=== PATIENT | male | born 1960 | race Hispanic/Latino ===

== ENCOUNTER 2021-07-29 13:48 | Inpatient (IN) | payer MEDICARE, BC ==
[~2021-07-29] VITALS: Ht 167.6 cm; Wt 78.2 kg
[2021-07-29] MEDS ORDERED: MIDODRINE 2.5 MG TAB PO ONE (14:15)
[2021-07-29] MEDS ORDERED: PIPERACILLIN/TAZOBACTAM 2.25 GM in SODIUM CHLORIDE 0.9% 50ML 50 ML IV ONE (14:15)
[2021-07-29] MEDS ORDERED: CEFEPIME 1 GM in SODIUM CHLORIDE 0.9% 50ML 50 ML IV ONE (14:15)
[2021-07-29] MEDS ORDERED: SODIUM CHLORIDE 0.9% 500ML 500 ML IV ONE (14:15)
[2021-07-29] MEDS ORDERED: Vancomycin IV 1 GM in SODIUM CHLORIDE 0.9% 250ML 250 ML IV ONE (14:15)
[2021-07-29 14:28] LABS: BASOPHILS # (AUTO) 0.1 (0.0-0.1); BASOPHILS % 0.3 % (0.0-1.0); HEMATOCRIT 43.3 % (38.2-49.6); HEMOGLOBIN 13.3 g/dL (14.0-18.0); LYMPHOCYTES % 7.2 % (18.0-39.1); MEAN CORPUSCULAR HEMOGLOBIN 28.4 pg (28-32); MEAN CORPUSCULAR HGB CONC 30.7 g/dL (31-35); MEAN CORPUSCULAR VOLUME 92.5 fL (81-99); MONOCYTES # (AUTO) 1.9 (0.2-0.8); MONOCYTES % 6.8 % (4.4-11.3); NEUTROPHILS # (AUTO) 23.6 (2.1-6.9); NEUTROPHILS % 84.9 % (38.7-80.0); PLATELET COUNT 131 x10e3/uL (140-360); RED BLOOD COUNT 4.68 x10e6/uL (4.3-5.7); RED CELL DISTRIBUTION WIDTH 13.2 % (11.7-14.4)
[2021-07-29 14:33] LABS: INR 1.22; PROTHROMBIN TIME 16.4 seconds (11.9-14.5)
[2021-07-29 14:34] LABS: PARTIAL THROMBOPLASTIN TIME 36.5 seconds (23.8-35.5)
[2021-07-29 14:44] LABS: ALBUMIN 3.3 g/dL (3.5-5.0); ALBUMIN/GLOBULIN RATIO 0.7 (0.8-2.0); ANION GAP 22.7 mmol/L (8-16); CALCIUM 9.8 mg/dL (8.4-10.2); CREATININE, SERUM 8.64 mg/dL (0.72-1.25); POTASSIUM 4.7 mmol/L (3.5-5.1)
[2021-07-29] MEDS ORDERED: SODIUM CHLORIDE 0.9% 50ML 50 ML ONE (14:47)
[2021-07-29] MEDS ORDERED: IOPAMIDOL 370 MG/ML 200 ML INFUS..BTL INJ ONE (14:47)
[2021-07-29 14:50] LABS: CREATINE KINASE MB 1.8 ng/mL (0-5.0)
[2021-07-29] MEDS ORDERED: ONDANSETRON HCL INJ 2MG/ML 2ML 2 MG/ML VIAL IV PRN (16:30)
[2021-07-29] MEDS ORDERED: DEXTROSE 50% SYRINGE 50 ML IV PRN (16:30)
[2021-07-29] MEDS: MIDODRINE 2.5 MG TAB PO SCH (17:17)
[2021-07-29] MEDS: INSULIN LISPRO 100 UNIT/1 ML 3ML VIAL SQ SCH ×2 (17:28→21:00)
[2021-07-29] MEDS: CLINDAMYCIN 600MG / 50ML 50 ML IV SCH (18:07)
[2021-07-29 20:17] VITALS: BP 95/48
[2021-07-29 21:00] VITALS: BP 84/48
[2021-07-29 21:32] VITALS: BP 101/42
[2021-07-29 21:37] LABS: BAND NEUTROPHILS % (MANUAL) 17 %; LYMPHOCYTES % (MANUAL) 11 % (19-48); MONOCYTES % (MANUAL) 5 % (3.4-9.0); NEUTROPHILS % (MANUAL) 67 % (40-74); PLATELET ESTIMATE ADEQUATE; PLATELET MORPHOLOGY COMMENT NORMAL; RBC MORPHOLOGY COMMENT NORMAL
[2021-07-29] MEDS ORDERED: MIDODRINE 2.5 MG TAB PO STA (21:48)
[2021-07-29 22:00] VITALS: BP 79/40
[2021-07-29] MEDS ORDERED: ALBUMIN 25% 25GM 100ML 0.25 GM/ML BTL IV ONE (22:00)
[2021-07-29 22:07] VITALS: BP 79/40
[2021-07-29 23:00] VITALS: BP 93/47
[2021-07-30] VITALS (26 sets, daily range): BP systolic 82–128; BP diastolic 39–61
[2021-07-30] MEDS: CLINDAMYCIN 600MG / 50ML 50 ML IV SCH ×2 (00:38→06:05)
[2021-07-30] MEDS: PIPERACILLIN/TAZOBACTAM 2.25 GM in SODIUM CHLORIDE 0.9% 50ML 50 ML IV SCH ×2 (02:00→10:07)
[2021-07-30] MEDS ORDERED: SODIUM CHLORIDE 0.9% 1000ML 1,000 ML IV SCH (03:45)
[2021-07-30 05:22] LABS: BASOPHILS # (AUTO) 0.1 (0.0-0.1); BASOPHILS % 0.4 % (0.0-1.0); HEMATOCRIT 35.8 % (38.2-49.6); HEMOGLOBIN 11.3 g/dL (14.0-18.0); LYMPHOCYTES # (AUTO) 1.6 (1.0-3.2); LYMPHOCYTES % 5.9 % (18.0-39.1); MEAN CORPUSCULAR HEMOGLOBIN 28.6 pg (28-32); MEAN CORPUSCULAR HGB CONC 31.6 g/dL (31-35); MEAN CORPUSCULAR VOLUME 90.6 fL (81-99); MONOCYTES # (AUTO) 2.3 (0.2-0.8); MONOCYTES % 8.7 % (4.4-11.3); NEUTROPHILS # (AUTO) 22.2 (2.1-6.9); NEUTROPHILS % 83.8 % (38.7-80.0); PLATELET COUNT 122 x10e3/uL (140-360); RED BLOOD COUNT 3.95 x10e6/uL (4.3-5.7); RED CELL DISTRIBUTION WIDTH 13.3 % (11.7-14.4)
[2021-07-30] MEDS: VASOPRESSIN 60 UNIT in DEXTROSE 5% 50ML 57 ML IV SCH ×2 (05:30→21:10)
[2021-07-30 05:54] LABS: ALBUMIN 2.6 g/dL (3.5-5.0); ALBUMIN/GLOBULIN RATIO 0.8 (0.8-2.0); ANION GAP 25.6 mmol/L (8-16); CALCIUM 8.4 mg/dL (8.4-10.2); CREATININE, SERUM 9.04 mg/dL (0.72-1.25); POTASSIUM 4.6 mmol/L (3.5-5.1)
[2021-07-30 06:03] LABS: CREATINE KINASE MB 1.1 ng/mL (0-5.0)
[2021-07-30] MEDS: INSULIN LISPRO 100 UNIT/1 ML 3ML VIAL SQ SCH ×4 (07:30→21:01)
[2021-07-30] MEDS: Morphine 2mg Syringe 2 MG/ML SYR IV PRN ×3 (09:10→19:28)
[2021-07-30] MEDS ORDERED: SODIUM BICARBONATE 8.4% INJ 50 ML SYR IV STA (09:18)
[2021-07-30] MEDS ORDERED: SODIUM CHLORIDE 0.9% 1000ML 1,000 ML IV ONE (09:25)
[2021-07-30 09:49] LABS: BAND NEUTROPHILS % (MANUAL) 1 %; LYMPHOCYTES % (MANUAL) 6 % (19-48); MONOCYTES % (MANUAL) 3 % (3.4-9.0); NEUTROPHILS % (MANUAL) 90 % (40-74); PLATELET ESTIMATE SLIGHTLY DECREASED; PLATELET MORPHOLOGY COMMENT NORMAL; RBC MORPHOLOGY COMMENT NORMAL
[2021-07-30] MEDS ORDERED: SODIUM CHLORIDE 0.9% 1000ML 1,000 ML ONE (10:07)
[2021-07-30] MEDS: MIDODRINE 2.5 MG TAB PO SCH ×3 (10:07→16:46)
[2021-07-30] MEDS ORDERED: ALBUMIN 25% 25GM 100ML 100 ML ONE (10:30)
[2021-07-30] MEDS ORDERED: SODIUM CHLORIDE 0.9% 1000ML 2,000 ML IV PRN (11:15)
[2021-07-30] MEDS ORDERED: ALBUMIN 25% 12.5GM 0.25 GM/ML BTL IV PRN ×2 (11:15)
[2021-07-30] MEDS ORDERED: Vancomycin IV 500 MG in SODIUM CHLORIDE 0.9% 100 ML IV ONE (11:30)
[2021-07-30] MEDS: DIPHENOXYLATE/ATROPINE TAB PO PRN (12:25)
[2021-07-30] MEDS ORDERED: NEURONTIN100 MG PO (13:19)
[2021-07-30] MEDS ORDERED: SODIUM BICARBO650 MG PO (13:19)
[2021-07-30] MEDS ORDERED: VALERIAN ROOT500 MG (13:19)
[2021-07-30] MEDS ORDERED: CLOPIDOGREL75 MG PO (13:19)
[2021-07-30] MEDS ORDERED: LIPITOR20 MG PO (13:19)
[2021-07-30] MEDS ORDERED: RENA-VITE TABL0.8 MG (13:19)
[2021-07-30] MEDS ORDERED: RENAGEL800 MG PO (13:19)
[2021-07-30] MEDS ORDERED: CEFEPIME 1 GM in SODIUM CHLORIDE 0.9% 50ML 50 ML IV SCH (14:00)
[2021-07-30 14:53] LABS: CREATINE KINASE MB 1.5 ng/mL (0-5.0)
[2021-07-30] MEDS: GABAPENTIN 100 MG CAP PO SCH ×2 (15:03→21:10)
[2021-07-30] MEDS ORDERED: Vancomycin IV 750 MG in SODIUM CHLORIDE 0.9% 250ML 150 ML IV SCH (17:00)
[2021-07-30] MEDS ORDERED: PIPERACILLIN/TAZOBACTAM 3.375 GM in SODIUM CHLORIDE 0.9% 50ML 50 ML IV SCH (21:00)
[2021-07-30] MEDS: ATORVASTATIN 40 MG TAB PO SCH (21:10)
[2021-07-31] VITALS (26 sets, daily range): BP systolic 82–114; BP diastolic 45–69
[2021-07-31] MEDS: DIPHENOXYLATE/ATROPINE TAB PO PRN (03:42)
[2021-07-31 05:38] LABS: BASOPHILS # (AUTO) 0.1 (0.0-0.1); BASOPHILS % 0.5 % (0.0-1.0); EOSINOPHILS # (AUTO) 0.1 (0.0-0.4); EOSINOPHILS % 0.2 % (0.0-6.0); HEMATOCRIT 34.3 % (38.2-49.6); HEMOGLOBIN 10.5 g/dL (14.0-18.0); LYMPHOCYTES # (AUTO) 1.8 (1.0-3.2); LYMPHOCYTES % 7.8 % (18.0-39.1); MEAN CORPUSCULAR HEMOGLOBIN 28.3 pg (28-32); MEAN CORPUSCULAR HGB CONC 30.6 g/dL (31-35); MEAN CORPUSCULAR VOLUME 92.5 fL (81-99); MONOCYTES % 12.7 % (4.4-11.3); NEUTROPHILS # (AUTO) 18.4 (2.1-6.9); PLATELET COUNT 138 x10e3/uL (140-360); RED BLOOD COUNT 3.71 x10e6/uL (4.3-5.7); RED CELL DISTRIBUTION WIDTH 13.4 % (11.7-14.4)
[2021-07-31 05:50] LABS: ALBUMIN/GLOBULIN RATIO 0.9 (0.8-2.0); ANION GAP 26.5 mmol/L (8-16); CALCIUM 8.3 mg/dL (8.4-10.2); CREATININE, SERUM 6.27 mg/dL (0.72-1.25); POTASSIUM 3.5 mmol/L (3.5-5.1)
[2021-07-31] MEDS: VASOPRESSIN 60 UNIT in DEXTROSE 5% 50ML 57 ML IV SCH (05:55)
[2021-07-31 06:15] LABS: CHOL/HDL RATIO 4.5 (3.9-4.7); MAGNESIUM 1.9 MG/DL (1.3-2.1); PHOSPHORUS 5.2 MG/DL (2.3-4.7)
[2021-07-31 06:36] LABS: THYROID STIMULATING HORMONE 0.42 uIU/mL (0.350-4.940)
[2021-07-31] MEDS ORDERED: LIDOCAINE HCL 2% LOCAL 20 ML VIAL ONE (07:44)
[2021-07-31] MEDS: Morphine 2mg Syringe 2 MG/ML SYR IV PRN (07:52)
[2021-07-31] MEDS ORDERED: LIDOCAINE HCL 2% LOCAL 20 ML VIAL INJ ONE (08:15)
[2021-07-31] MEDS: MIDODRINE 2.5 MG TAB PO SCH ×3 (08:41→15:38)
[2021-07-31] MEDS: FAMOTIDINE 20 MG/2 ML VIAL IV SCH (08:42)
[2021-07-31] MEDS: GABAPENTIN 100 MG CAP PO SCH ×3 (08:42→21:17)
[2021-07-31] MEDS: CLOPIDOGREL BISULFATE 75 MG TAB PO SCH (08:42)
[2021-07-31] MEDS: INSULIN LISPRO 100 UNIT/1 ML 3ML VIAL SQ SCH ×4 (08:53→21:45)
[2021-07-31] MEDS: PIPERACILLIN/TAZOBACTAM 3.375 GM in SODIUM CHLORIDE 0.9% 50ML 50 ML IV SCH ×2 (09:47→21:18)
[2021-07-31] MEDS: ATORVASTATIN 40 MG TAB PO SCH (21:17)
[2021-08-01] VITALS (24 sets, daily range): BP systolic 77–135; BP diastolic 38–112
[2021-08-01 05:01] LABS: BASOPHILS # (AUTO) 0.1 (0.0-0.1); BASOPHILS % 0.3 % (0.0-1.0); EOSINOPHILS # (AUTO) 0.1 (0.0-0.4); EOSINOPHILS % 0.6 % (0.0-6.0); HEMATOCRIT 34.1 % (38.2-49.6); HEMOGLOBIN 10.6 g/dL (14.0-18.0); LYMPHOCYTES # (AUTO) 2.1 (1.0-3.2); LYMPHOCYTES % 9.2 % (18.0-39.1); MEAN CORPUSCULAR HEMOGLOBIN 28.4 pg (28-32); MEAN CORPUSCULAR HGB CONC 31.1 g/dL (31-35); MEAN CORPUSCULAR VOLUME 91.4 fL (81-99); MONOCYTES # (AUTO) 2.8 (0.2-0.8); MONOCYTES % 12.1 % (4.4-11.3); NEUTROPHILS # (AUTO) 17.7 (2.1-6.9); NEUTROPHILS % 76.8 % (38.7-80.0); PLATELET COUNT 144 x10e3/uL (140-360); RED BLOOD COUNT 3.73 x10e6/uL (4.3-5.7); RED CELL DISTRIBUTION WIDTH 13.4 % (11.7-14.4)
[2021-08-01 05:22] LABS: ALBUMIN 2.7 g/dL (3.5-5.0); ALBUMIN/GLOBULIN RATIO 0.8 (0.8-2.0); ANION GAP 25.5 mmol/L (8-16); CREATININE, SERUM 7.96 mg/dL (0.72-1.25); POTASSIUM 3.5 mmol/L (3.5-5.1)
[2021-08-01] MEDS: FAMOTIDINE 20 MG/2 ML VIAL IV SCH (08:14)
[2021-08-01] MEDS: GABAPENTIN 100 MG CAP PO SCH ×3 (08:14→20:44)
[2021-08-01] MEDS: PIPERACILLIN/TAZOBACTAM 3.375 GM in SODIUM CHLORIDE 0.9% 50ML 50 ML IV SCH (08:14)
[2021-08-01] MEDS: MIDODRINE 2.5 MG TAB PO SCH ×3 (08:14→16:59)
[2021-08-01] MEDS: CLOPIDOGREL BISULFATE 75 MG TAB PO SCH (08:14)
[2021-08-01] MEDS: INSULIN LISPRO 100 UNIT/1 ML 3ML VIAL SQ SCH ×4 (08:17→20:45)
[2021-08-01 08:32] LABS: EOSINOPHILS % (MANUAL) 1 % (0-7); MONOCYTES % (MANUAL) 13 % (3.4-9.0); NEUTROPHILS % (MANUAL) 86 % (40-74); PLATELET ESTIMATE SLIGHTLY DECREASED; PLATELET MORPHOLOGY COMMENT NORMAL
[2021-08-01 08:33] LABS: RBC MORPHOLOGY COMMENT NORMAL
[2021-08-01] MEDS: ATORVASTATIN 40 MG TAB PO SCH (20:44)
[2021-08-02] VITALS (25 sets, daily range): BP systolic 76–122; BP diastolic 41–63
[2021-08-02 04:58] LABS: BASOPHILS # (AUTO) 0.1 (0.0-0.1); BASOPHILS % 0.4 % (0.0-1.0); EOSINOPHILS # (AUTO) 0.2 (0.0-0.4); EOSINOPHILS % 0.9 % (0.0-6.0); HEMATOCRIT 38.8 % (38.2-49.6); HEMOGLOBIN 11.9 g/dL (14.0-18.0); LYMPHOCYTES # (AUTO) 1.6 (1.0-3.2); LYMPHOCYTES % 7.7 % (18.0-39.1); MEAN CORPUSCULAR HEMOGLOBIN 28.5 pg (28-32); MEAN CORPUSCULAR HGB CONC 30.7 g/dL (31-35); MEAN CORPUSCULAR VOLUME 92.8 fL (81-99); MONOCYTES # (AUTO) 2.9 (0.2-0.8); MONOCYTES % 13.6 % (4.4-11.3); NEUTROPHILS % 75.9 % (38.7-80.0); PLATELET COUNT 155 x10e3/uL (140-360); RED BLOOD COUNT 4.18 x10e6/uL (4.3-5.7); RED CELL DISTRIBUTION WIDTH 13.5 % (11.7-14.4)
[2021-08-02] MEDS: VASOPRESSIN 60 UNIT in DEXTROSE 5% 50ML 57 ML IV SCH (05:15)
[2021-08-02 05:25] LABS: ALBUMIN/GLOBULIN RATIO 0.8 (0.8-2.0); ANION GAP 24.4 mmol/L (8-16); CALCIUM 8.6 mg/dL (8.4-10.2); CREATININE, SERUM 4.95 mg/dL (0.72-1.25); POTASSIUM 3.4 mmol/L (3.5-5.1)
[2021-08-02] MEDS: INSULIN LISPRO 100 UNIT/1 ML 3ML VIAL SQ SCH ×4 (07:37→21:28)
[2021-08-02] MEDS: CEFTRIAXONE 2 GM in SODIUM CHLORIDE 0.9% 100 ML IV SCH (09:42)
[2021-08-02] MEDS: GABAPENTIN 100 MG CAP PO SCH (09:42)
[2021-08-02] MEDS: MIDODRINE 2.5 MG TAB PO SCH ×3 (09:42→16:09)
[2021-08-02] MEDS: FAMOTIDINE 20 MG/2 ML VIAL IV SCH (09:42)
[2021-08-02] MEDS: CLOPIDOGREL BISULFATE 75 MG TAB PO SCH (09:42)
[2021-08-02] MEDS: ACETAMINOPHEN 325 MG TAB PO PRN (21:27)
[2021-08-02] MEDS: ATORVASTATIN 40 MG TAB PO SCH (21:27)
[2021-08-03] VITALS (7 sets, daily range): BP systolic 78–102; BP diastolic 48–61
[2021-08-03 05:01] LABS: BASOPHILS # (AUTO) 0.1 (0.0-0.1); BASOPHILS % 0.3 % (0.0-1.0); EOSINOPHILS # (AUTO) 0.4 (0.0-0.4); EOSINOPHILS % 2.2 % (0.0-6.0); HEMATOCRIT 36.8 % (38.2-49.6); HEMOGLOBIN 11.5 g/dL (14.0-18.0); LYMPHOCYTES # (AUTO) 2.8 (1.0-3.2); LYMPHOCYTES % 14.8 % (18.0-39.1); MEAN CORPUSCULAR HGB CONC 31.3 g/dL (31-35); MEAN CORPUSCULAR VOLUME 89.5 fL (81-99); MONOCYTES # (AUTO) 2.2 (0.2-0.8); MONOCYTES % 11.9 % (4.4-11.3); NEUTROPHILS # (AUTO) 12.5 (2.1-6.9); NEUTROPHILS % 67.4 % (38.7-80.0); PLATELET COUNT 205 x10e3/uL (140-360); RED BLOOD COUNT 4.11 x10e6/uL (4.3-5.7); RED CELL DISTRIBUTION WIDTH 13.2 % (11.7-14.4)
[2021-08-03 05:24] LABS: ANION GAP 20.1 mmol/L (8-16); CREATININE, SERUM 6.54 mg/dL (0.72-1.25); MAGNESIUM 1.9 MG/DL (1.3-2.1); PHOSPHORUS 4.5 MG/DL (2.3-4.7); POTASSIUM 3.1 mmol/L (3.5-5.1)
[2021-08-03 06:21] LABS: EOSINOPHILS % (MANUAL) 3 % (0-7); LYMPHOCYTES % (MANUAL) 24 % (19-48); MONOCYTES % (MANUAL) 8 % (3.4-9.0); NEUTROPHILS % (MANUAL) 65 % (40-74); PLATELET ESTIMATE ADEQUATE
[2021-08-03 06:22] LABS: HYPOCHROMASIA SLIGHT; PLATELET MORPHOLOGY COMMENT NORMAL; RBC MORPHOLOGY COMMENT NORMAL
[2021-08-03] MEDS: INSULIN LISPRO 100 UNIT/1 ML 3ML VIAL SQ SCH ×4 (08:00→21:00)
[2021-08-03] MEDS: CEFTRIAXONE 2 GM in SODIUM CHLORIDE 0.9% 100 ML IV SCH (08:57)
[2021-08-03] MEDS: FAMOTIDINE 20 MG/2 ML VIAL IV SCH (08:57)
[2021-08-03] MEDS: MIDODRINE 2.5 MG TAB PO SCH ×3 (08:57→16:53)
[2021-08-03] MEDS: CLOPIDOGREL BISULFATE 75 MG TAB PO SCH (08:58)
[2021-08-03] MEDS: INSULIN GLARGINE 100 UNITS/ML VIAL SQ SCH (09:04)
[2021-08-03] MEDS ORDERED: SODIUM CHLORIDE 0.9% 250ML 250 ML ONE (09:26)
[2021-08-03] MEDS ORDERED: ONDANSETRON HCL 4 MG ORAL DISINTEGRATING TAB PO PRN (10:45)
[2021-08-03] MEDS: ATORVASTATIN 40 MG TAB PO SCH (21:30)
[2021-08-04] VITALS (8 sets, daily range): BP systolic 85–103; BP diastolic 51–68
[2021-08-04 04:57] LABS: BASOPHILS # (AUTO) 0.1 (0.0-0.1); BASOPHILS % 0.6 % (0.0-1.0); EOSINOPHILS # (AUTO) 0.2 (0.0-0.4); EOSINOPHILS % 1.2 % (0.0-6.0); HEMATOCRIT 38.3 % (38.2-49.6); HEMOGLOBIN 11.9 g/dL (14.0-18.0); LYMPHOCYTES # (AUTO) 2.2 (1.0-3.2); LYMPHOCYTES % 12.8 % (18.0-39.1); MEAN CORPUSCULAR HEMOGLOBIN 28.1 pg (28-32); MEAN CORPUSCULAR HGB CONC 31.1 g/dL (31-35); MEAN CORPUSCULAR VOLUME 90.3 fL (81-99); MONOCYTES # (AUTO) 2.8 (0.2-0.8); MONOCYTES % 16.3 % (4.4-11.3); NEUTROPHILS # (AUTO) 11.2 (2.1-6.9); NEUTROPHILS % 66.1 % (38.7-80.0); PLATELET COUNT 216 x10e3/uL (140-360); RED BLOOD COUNT 4.24 x10e6/uL (4.3-5.7); RED CELL DISTRIBUTION WIDTH 13.3 % (11.7-14.4)
[2021-08-04 05:14] LABS: ANION GAP 23.5 mmol/L (8-16); CALCIUM 8.2 mg/dL (8.4-10.2); CREATININE, SERUM 3.97 mg/dL (0.72-1.25); POTASSIUM 3.5 mmol/L (3.5-5.1)
[2021-08-04] MEDS: INSULIN GLARGINE 100 UNITS/ML VIAL SQ SCH (09:00)
[2021-08-04] MEDS: INSULIN LISPRO 100 UNIT/1 ML 3ML VIAL SQ SCH ×4 (09:00→20:17)
[2021-08-04] MEDS: CLOPIDOGREL BISULFATE 75 MG TAB PO SCH (09:02)
[2021-08-04] MEDS: FAMOTIDINE 20 MG TAB PO SCH (09:02)
[2021-08-04] MEDS: MIDODRINE 2.5 MG TAB PO SCH ×3 (09:02→16:19)
[2021-08-04] MEDS: CEFTRIAXONE 2 GM in SODIUM CHLORIDE 0.9% 100 ML IV SCH (09:21)
[2021-08-04] MEDS: ATORVASTATIN 40 MG TAB PO SCH (20:12)
[2021-08-05 00:08] VITALS: BP 110/59
[2021-08-05 06:01] LABS: BASOPHILS # (AUTO) 0.1 (0.0-0.1); BASOPHILS % 0.6 % (0.0-1.0); EOSINOPHILS # (AUTO) 0.5 (0.0-0.4); EOSINOPHILS % 3.3 % (0.0-6.0); HEMATOCRIT 37.4 % (38.2-49.6); HEMOGLOBIN 11.4 g/dL (14.0-18.0); LYMPHOCYTES # (AUTO) 3.1 (1.0-3.2); LYMPHOCYTES % 19.9 % (18.0-39.1); MEAN CORPUSCULAR HEMOGLOBIN 28.4 pg (28-32); MEAN CORPUSCULAR HGB CONC 30.5 g/dL (31-35); MONOCYTES # (AUTO) 2.1 (0.2-0.8); MONOCYTES % 13.3 % (4.4-11.3); NEUTROPHILS # (AUTO) 9.3 (2.1-6.9); NEUTROPHILS % 59.9 % (38.7-80.0); PLATELET COUNT 254 x10e3/uL (140-360); RED BLOOD COUNT 4.02 x10e6/uL (4.3-5.7); RED CELL DISTRIBUTION WIDTH 13.2 % (11.7-14.4)
[2021-08-05 06:21] LABS: ANION GAP 19.3 mmol/L (8-16); CALCIUM 8.4 mg/dL (8.4-10.2); CREATININE, SERUM 5.83 mg/dL (0.72-1.25); POTASSIUM 3.3 mmol/L (3.5-5.1)
[2021-08-05] MEDS: INSULIN LISPRO 100 UNIT/1 ML 3ML VIAL SQ SCH ×4 (07:30→23:01)
[2021-08-05 08:00] VITALS: BP 111/56
[2021-08-05] MEDS: MIDODRINE 2.5 MG TAB PO SCH ×3 (08:00→16:00)
[2021-08-05 08:02] LABS: EOSINOPHILS % (MANUAL) 3 % (0-7); LYMPHOCYTES % (MANUAL) 20 % (19-48); MONOCYTES % (MANUAL) 22 % (3.4-9.0); NEUTROPHILS % (MANUAL) 55 % (40-74)
[2021-08-05 08:03] LABS: PLATELET ESTIMATE ADEQUATE; PLATELET MORPHOLOGY COMMENT NORMAL; RBC MORPHOLOGY COMMENT NORMAL
[2021-08-05] MEDS: INSULIN GLARGINE 100 UNITS/ML VIAL SQ SCH (09:00)
[2021-08-05] MEDS: CLOPIDOGREL BISULFATE 75 MG TAB PO SCH (09:00)
[2021-08-05] MEDS: CEFTRIAXONE 2 GM in SODIUM CHLORIDE 0.9% 100 ML IV SCH (09:00)
[2021-08-05] MEDS: FAMOTIDINE 20 MG TAB PO SCH (09:00)
[2021-08-05 09:19] VITALS: BP 111/56
[2021-08-05 12:37] VITALS: BP 99/64
[2021-08-05 16:50] VITALS: BP 99/64
[2021-08-05 20:00] VITALS: BP 96/62
[2021-08-05] MEDS: ATORVASTATIN 40 MG TAB PO SCH (20:05)
[2021-08-05] MEDS: MELATONIN 5 MG TABLET PO SCH (20:05)
[2021-08-05] MEDS: ACETAMINOPHEN 325 MG TAB PO PRN ×2 (23:03→23:18)
[2021-08-06] VITALS (8 sets, daily range): BP systolic 98–138; BP diastolic 52–67
[2021-08-06] MEDS: ACETAMINOPHEN 325 MG TAB PO PRN ×2 (04:39→21:37)
[2021-08-06 06:12] LABS: BASOPHILS # (AUTO) 0.1 (0.0-0.1); BASOPHILS % 0.4 % (0.0-1.0); EOSINOPHILS # (AUTO) 0.4 (0.0-0.4); EOSINOPHILS % 2.7 % (0.0-6.0); HEMATOCRIT 36.5 % (38.2-49.6); LYMPHOCYTES # (AUTO) 2.9 (1.0-3.2); LYMPHOCYTES % 17.3 % (18.0-39.1); MEAN CORPUSCULAR HGB CONC 30.1 g/dL (31-35); MEAN CORPUSCULAR VOLUME 92.9 fL (81-99); MONOCYTES % 11.8 % (4.4-11.3); NEUTROPHILS # (AUTO) 10.7 (2.1-6.9); NEUTROPHILS % 64.7 % (38.7-80.0); PLATELET COUNT 279 x10e3/uL (140-360); RED BLOOD COUNT 3.93 x10e6/uL (4.3-5.7); RED CELL DISTRIBUTION WIDTH 13.2 % (11.7-14.4)
[2021-08-06 06:55] LABS: ALBUMIN 2.3 g/dL (3.5-5.0); ALBUMIN/GLOBULIN RATIO 0.6 (0.8-2.0); ANION GAP 20.4 mmol/L (8-16); CALCIUM 8.3 mg/dL (8.4-10.2); CREATININE, SERUM 7.32 mg/dL (0.72-1.25); POTASSIUM 3.4 mmol/L (3.5-5.1)
[2021-08-06] MEDS: INSULIN LISPRO 100 UNIT/1 ML 3ML VIAL SQ SCH ×4 (07:30→21:24)
[2021-08-06] MEDS: INSULIN GLARGINE 100 UNITS/ML VIAL SQ SCH (09:00)
[2021-08-06] MEDS: FAMOTIDINE 20 MG TAB PO SCH (09:49)
[2021-08-06] MEDS: CLOPIDOGREL BISULFATE 75 MG TAB PO SCH (09:49)
[2021-08-06] MEDS: CEFTRIAXONE 2 GM in SODIUM CHLORIDE 0.9% 100 ML IV SCH (09:49)
[2021-08-06] MEDS: MIDODRINE 2.5 MG TAB PO SCH ×3 (09:50→17:39)
[2021-08-06] MEDS: MELATONIN 5 MG TABLET PO SCH (21:24)
[2021-08-06] MEDS: ATORVASTATIN 40 MG TAB PO SCH (21:24)
[2021-08-07] VITALS: BP 105/62
[2021-08-07 04:00] VITALS: BP 106/65
[2021-08-07 07:45] VITALS: BP 106/65
[2021-08-07] MEDS: INSULIN LISPRO 100 UNIT/1 ML 3ML VIAL SQ SCH ×3 (07:47→16:54)
[2021-08-07] MEDS: CEFTRIAXONE 2 GM in SODIUM CHLORIDE 0.9% 100 ML IV SCH (08:09)
[2021-08-07] MEDS: CLOPIDOGREL BISULFATE 75 MG TAB PO SCH (08:09)
[2021-08-07] MEDS: FAMOTIDINE 20 MG TAB PO SCH (08:09)
[2021-08-07] MEDS: MIDODRINE 2.5 MG TAB PO SCH ×3 (08:09→16:57)
[2021-08-07 08:19] VITALS: BP 145/86
[2021-08-07] MEDS ORDERED: INSULIN GLARGINE 100 UNITS/ML VIAL SQ SCH (09:00)
[2021-08-07] MEDS: ACETAMINOPHEN 325 MG TAB PO PRN (09:55)
[2021-08-07 12:13] VITALS: BP 108/61
[2021-08-07 13:03] LABS: BASOPHILS # (AUTO) 0.1 (0.0-0.1); BASOPHILS % 0.5 % (0.0-1.0); EOSINOPHILS # (AUTO) 0.2 (0.0-0.4); EOSINOPHILS % 1.3 % (0.0-6.0); HEMOGLOBIN 10.2 g/dL (14.0-18.0); LYMPHOCYTES % 14.1 % (18.0-39.1); MEAN CORPUSCULAR VOLUME 93.4 fL (81-99); MONOCYTES # (AUTO) 1.8 (0.2-0.8); MONOCYTES % 12.2 % (4.4-11.3); NEUTROPHILS # (AUTO) 10.1 (2.1-6.9); NEUTROPHILS % 69.8 % (38.7-80.0); PLATELET COUNT 257 x10e3/uL (140-360); RED BLOOD COUNT 3.64 x10e6/uL (4.3-5.7); RED CELL DISTRIBUTION WIDTH 13.2 % (11.7-14.4)
[2021-08-07 15:40] VITALS: BP 103/67
== END 2021-08-07 17:58 | disposition home or self-care (01) | DRG 871 ==
LOC: ER 13:51 → ERHOLD 16:34 → ICU 20:10 → MED/SURG2 08-02 23:38
PROVIDERS: ADMIT Internal Medicine; ATTEND Internal Medicine
PROC: 02HV33Z Insertion of Infusion Device into Superior Vena Cava, Percutaneous Approach (ICD-10-PCS; principal; 2021-07-30)
PROC: B548ZZA Ultrasonography of Superior Vena Cava, Guidance (ICD-10-PCS; 2021-07-30)
PROC: 5A1D70Z Performance of Urinary Filtration, Intermittent, Less than 6 Hours Per Day (ICD-10-PCS; 2021-07-30)
PROC: 3E043XZ Introduction of Vasopressor into Central Vein, Percutaneous Approach (ICD-10-PCS; 2021-07-30)
PROC: 0V953ZZ Drainage of Scrotum, Percutaneous Approach (ICD-10-PCS; 2021-07-31)
DX: A41.9 Sepsis, unspecified organism (principal); N18.6 End stage renal disease; R65.21 Severe sepsis with septic shock; G93.41 Metabolic encephalopathy; I12.0 Hypertensive chronic kidney disease with stage 5 chronic kidney disease or end stage renal disease; T82.590A Other mechanical complication of surgically created arteriovenous fistula, initial encounter; N49.2 Inflammatory disorders of scrotum; Z99.2 Dependence on renal dialysis; E11.22 Type 2 diabetes mellitus with diabetic chronic kidney disease; E11.42 Type 2 diabetes mellitus with diabetic polyneuropathy; E78.5 Hyperlipidemia, unspecified; K52.9 Noninfective gastroenteritis and colitis, unspecified; N43.3 Hydrocele, unspecified; I95.89 Other hypotension; K75.81 Nonalcoholic steatohepatitis (NASH); B95.4 Other streptococcus as the cause of diseases classified elsewhere; Z20.822 Contact with and (suspected) exposure to COVID-19
CPT/HCPCS: 36415; 71045; 74177; 76870; 80048; 80053; 80061; 82140; 82550; 82553; 82948; 83036; 83605; 83735; 84100; 84443; 84484; 85025; 85610; 85730; 86705; 86706; 87040; 87045; 87071; 87205; 87340; 87493; 90962; 93005; 93976; 94799; 96372; 97139; 99251; 99284; J0692; J0696; J1815; J2001; J2270; J2543; J3370; J7030; J7040; J7050; P9047; Q9967; U0002

== ENCOUNTER → 2024-06-10 | Day surgery (SDC) | payer BC, MEDICARE, OTHER ==
[~2024-06-10] MED LIST: CLOPIDOGREL75 MG PO; LIDOCAINE HCL 2% LOCAL INJ 5 ML SDV VIAL INJ ONE; LIPITOR20 MG PO; MIDODRINE HCL5 MG PO; NEURONTIN100 MG PO; PROPOFOL IV EMULSION 10 MG/ML 20 ML VIAL ONE; RENA-VITE TABL0.8 MG; RENAGEL800 MG PO; SODIUM BICARBO650 MG PO; SODIUM CHLORIDE 0.9% 500ML 500 ML ONE; VALERIAN ROOT500 MG
[2024-06-10 08:32] LABS: BASOPHILS # (AUTO) 0.1 (0.0-0.1); BASOPHILS % 1.4 % (0.0-1.0); EOSINOPHILS # (AUTO) 0.3 (0.0-0.4); EOSINOPHILS % 3.7 % (0.0-6.0); HEMATOCRIT 35.6 % (38.2-49.6); LYMPHOCYTES # (AUTO) 2.2 (1.0-3.2); MEAN CORPUSCULAR HEMOGLOBIN 29.6 pg (28-32); MEAN CORPUSCULAR HGB CONC 30.9 g/dL (31-35); MONOCYTES # (AUTO) 1.1 (0.2-0.8); MONOCYTES % 12.4 % (4.4-11.3); NEUTROPHILS % 57.3 % (38.7-80.0); PLATELET COUNT 240 x10e3/uL (140-360); RED BLOOD COUNT 3.71 x10e6/uL (4.3-5.7); WHITE BLOOD COUNT 8.76 x10e3/uL (4.8-10.8)
[2024-06-10 08:42] LABS: INR 1.09; PROTHROMBIN TIME 14.7 seconds (11.9-14.5)
[2024-06-10 08:43] LABS: PARTIAL THROMBOPLASTIN TIME 37.1 seconds (23.8-35.5)
[2024-06-10 08:51] LABS: CREATININE, SERUM 6.34 mg/dL (0.72-1.25)
[2024-06-10 09:30] VITALS: TEMP 97
[2024-06-10 09:50] VITALS: BP 114/66; PULSE 70; RESP 18; O2SAT 99
== END | disposition home or self-care (01) ==
LOC: OR 07:45
PROVIDERS: ATTEND Internal Medicine Gastroenterology
DX: Z12.11 Encounter for screening for malignant neoplasm of colon (principal); D12.3 Benign neoplasm of transverse colon; K64.8 Other hemorrhoids; K21.9 Gastro-esophageal reflux disease without esophagitis; Z71.3 Dietary counseling and surveillance; Z78.9 Other specified health status; E11.22 Type 2 diabetes mellitus with diabetic chronic kidney disease; I12.0 Hypertensive chronic kidney disease with stage 5 chronic kidney disease or end stage renal disease; N18.6 End stage renal disease; E78.5 Hyperlipidemia, unspecified; Z01.810 Encounter for preprocedural cardiovascular examination; Z79.02 Long term (current) use of antithrombotics/antiplatelets; Z99.2 Dependence on renal dialysis; Z68.29 Body mass index [BMI] 29.0-29.9, adult
CPT/HCPCS: 36415; 45385; 80048; 85025; 85610; 85730; 88305; 93005; J2003; J2704; J7040; 45378